=== PATIENT | male | born 1975 ===

== ENCOUNTER 2020-09-18 13:53 | Outpatient (RCR) | payer OTHER | END 2020-09-30 13:44 | disposition home or self-care (01) | LOC: WSOH 13:53 | DX: S16.1XXA Strain of muscle, fascia and tendon at neck level, initial encounter (principal); V89.2XXA Person injured in unspecified motor-vehicle accident, traffic, initial encounter; E78.00 Pure hypercholesterolemia, unspecified; Z87.891 Personal history of nicotine dependence; M19.90 Unspecified osteoarthritis, unspecified site; Y99.0 Civilian activity done for income or pay ==